=== PATIENT | male | born 1955 | race Caucasian/White ===

== ENCOUNTER 2020-07-19 18:21 | Observation (INO) | payer BC ==
[2020-07-19] MEDS ORDERED: IPRATROPIUM-ALBUTEROL 3 ML NEB INHALATION STA (19:02)
[2020-07-19] MEDS ORDERED: SODIUM CHLORIDE 0.9% 1,000 ML IV STA (19:02)
--- NOTE | 2020-07-19 19:21 | ED ---
SOB HPI - General Chief Complaint: Shortness of Breath Stated Complaint: Dr Hidalgo sent him for transfusion Time Seen by Provider: 07/19/20 18:40 Source: patient, RN notes reviewed Mode of arrival: wheelchair Limitations: physical limitation - History of Present Illness Initial Comments: This a 64-year-old male with a history of COPD also history of prior episodes of GI bleeding secondary to polyps who was sent in by his doctor's office today for evaluation for anemia and possible blood transfusion. He stated that the office today call at a time however no step members are currently aware of this area. He denies any lightheadedness dizziness fevers chills sweats he does have exertional dyspnea and shortness of breath from COPD. He does occasionally have some leading per rectum he states but nothing recent. No abdominal pain no other modifying factors at this time MD Complaint: shortness of breath - Related Data Home Medications Medication Instructions Recorded Confirmed Albuterol Sulfate [Ventolin HFA] 1 - 2 puff INHALATION RT-Q4H PRN 07/19/20 07/19/20 Aspirin EC [Ecotrin Low Dose] 81 mg PO DAILY 07/19/20 07/19/20 Atorvastatin Calcium [Lipitor] 40 mg PO HS 07/19/20 Budesonide [Pulmicort] 0.5 mg INHALATION RT-BID 07/19/20 Clopidogrel [Plavix] 75 mg PO DAILY 07/19/20 07/19/20 Furosemide [Lasix] 20 mg PO HS 07/19/20 07/19/20 Metoprolol Succinate [Toprol XL] 50 mg PO DAILY 07/19/20 07/19/20 Potassium Chloride [Klor-Con 10] 10 - 20 meq PO HS 07/19/20 Allergies Allergy/AdvReac Type Severity Reaction Status Date / Time No Known Allergies Allergy Verified 07/19/20 21:20 Review of Systems ROS Statement: Those systems with pertinent positive or pertinent negative responses have been documented in the HPI. ROS Other: All systems not noted in ROS Statement are negative. Past Medical History Past Medical History: Coronary Artery Disease (CAD), COPD History of Any Multi-Drug Resistant Organisms: None Reported Past Surgical History: Heart Catheterization With Stent Past Psychological History: No Psychological Hx Reported Smoking Status: Current some day smoker Past Alcohol Use History: Occasional Past Drug Use History: None Reported General Exam - General Exam Comments Initial Comments: This is a well-developed awake alert oriented times female Limitations: physical limitation General appearance: alert, in no apparent distress Head exam: Present: atraumatic, normocephalic, normal inspection Eye exam: Present: normal appearance, PERRL, EOMI. Absent: scleral icterus, conjunctival injection, periorbital swelling ENT exam: Present: normal exam, mucous membranes moist Neck exam: Present: normal inspection. Absent: tenderness, meningismus, lymphadenopathy Respiratory exam: Present: wheezes, decreased breath sounds. Absent: respiratory distress, rales, rhonchi, stridor Cardiovascular Exam: Present: regular rate, normal rhythm, normal heart sounds. Absent: systolic murmur, diastolic murmur, rubs, gallop, clicks GI/Abdominal exam: Present: soft, normal bowel sounds. Absent: distended, tenderness, guarding, rebound, rigid Extremities exam: Present: normal inspection, full ROM, normal capillary refill. Absent: tenderness, pedal edema, joint swelling, calf tenderness Back exam: Present: normal inspection Neurological exam: Present: alert, oriented X3, CN II-XII intact Psychiatric exam: Present: normal affect, normal mood Skin exam: Present: warm, dry, intact, normal color. Absent: rash Course Vital Signs 07/19/20 07/19/20 07/19/20 18:29 19:33 19:40 Temperature 98.2 F Pulse Rate 90 80 78 Respiratory 22 Rate Blood Pressure 109/72 O2 Sat by Pulse 89 L Oximetry 07/19/20 07/19/20 07/19/20 19:49 21:05 21:43 Temperature 97.9 F Pulse Rate 77 81 76 Respiratory 20 18 20 Rate Blood Pressure 127/78 153/54 137/77 O2 Sat by Pulse 98 96 97 Oximetry - Reevaluation(s) Reevaluation #1: 07/19/20 21:58 Reevaluation patient reveals continued diminished breath sounds with diffuse wh eezing. He still short of breath he feels no improvement. Medical Decision Making - Medical Decision Making I did a long discussion with the patient and his regarding findings patient does demonstrate evidence of COPD exacerbation. Additionally he does have anemia and does have a history of intermittent bleeding that is known to his physician apparently. He will be admitted serial CBCs and treatment for COPD exacerbation. GI will be consulted - Lab Data Result diagrams: 07/19/20 19:09 07/19/20 19:09 Lab Results 07/19/20 07/19/20 07/19/20 Range/Units 19:05 19:09 19:09 WBC 8.4 (3.8-10.6) k/uL RBC 4.37 (4.30-5.90) m/uL Hgb 8.4 L (13.0-17.5) gm/dL Hct 31.7 L (39.0-53.0) % MCV 72.5 L (80.0-100.0) fL MCH 19.2 L (25.0-35.0) pg MCHC 26.4 L (31.0-37.0) g/dL RDW 18.6 H (11.5-15.5) % Plt Count 322 (150-450) k/uL Neutrophils % (Manual) 75 % Band Neutrophils % 3 % Lymphocytes % (Manual) 14 % Monocytes % (Manual) 3 % Eosinophils % (Manual) 5 % Neutrophils # (Manual) 6.50 (1.3-7.7) k/uL Lymphocytes # (Manual) 1.18 (1.0-4.8) k/uL Monocytes # (Manual) 0.25 (0-1.0) k/uL Eosinophils # (Manual) 0.42 (0-0.7) k/uL Nucleated RBCs 0 (0-0) /100 WBC Manual Slide Review Performed Hypochromasia Marked Poikilocytosis Slight Poikilocytosis (manual Present Anisocytosis Slight Microcytosis Moderate Target Cells Present PT 10.7 (9.0-12.0) sec INR 1.0 (<1.2) APTT 25.3 (22.0-30.0) sec Sodium (137-145) mmol/L Potassium (3.5-5.1) mmol/L Chloride (98-107) mmol/L Carbon Dioxide (22-30) mmol/L Anion Gap mmol/L BUN (9-20) mg/dL Creatinine (0.66-1.25) mg/dL Est GFR (CKD-EPI)AfAm (>60 ml/min/1.73 sqM) Est GFR (CKD-EPI)NonAf (>60 ml/min/1.73 sqM) Glucose (74-99) mg/dL Calcium (8.4-10.2) mg/dL Magnesium (1.6-2.3) mg/dL Total Bilirubin (0.2-1.3) mg/dL AST (17-59) U/L ALT (4-49) U/L Alkaline Phosphatase (38-126) U/L Creatine Kinase (55-170) U/L Troponin I (0.000-0.034) ng/mL Total Protein (6.3-8.2) g/dL Albumin (3.5-5.0) g/dL Blood Type Blood Type Confirm O Positive Blood Type Recheck Bld Type Recheck Status Antibody Screen Spec Expiration Date 07/19/20 07/19/20 07/19/20 Range/Units 19:09 19:09 19:09 WBC (3.8-10.6) k/uL RBC (4.30-5.90) m/uL Hgb (13.0-17.5) gm/dL Hct (39.0-53.0) % MCV (80.0-100.0) fL MCH (25.0-35.0) pg MCHC (31.0-37.0) g/dL RDW (11.5-15.5) % Plt Count (150-450) k/uL Neutrophils % (Manual) % Band Neutrophils % % Lymphocytes % (Manual) % Monocytes % (Manual) % Eosinophils % (Manual) % Neutrophils # (Manual) (1.3-7.7) k/uL Lymphocytes # (Manual) (1.0-4.8) k/uL Monocytes # (Manual) (0-1.0) k/uL Eosinophils # (Manual) (0-0.7) k/uL Nucleated RBCs (0-0) /100 WBC Manual Slide Review Hypochromasia Poikilocytosis Poikilocytosis (manual Anisocytosis Microcytosis Target Cells PT (9.0-12.0) sec INR (<1.2) APTT (22.0-30.0) sec Sodium 128 L (137-145) mmol/L Potassium 5.4 H (3.5-5.1) mmol/L Chloride 89 L (98-107) mmol/L Carbon Dioxide 27 (22-30) mmol/L Anion Gap 12 mmol/L BUN 14 (9-20) mg/dL Creatinine 0.74 (0.66-1.25) mg/dL Est GFR (CKD-EPI)AfAm >90 (>60 ml/min/1.73 sqM) Est GFR (CKD-EPI)NonAf >90 (>60 ml/min/1.73 sqM) Glucose 94 (74-99) mg/dL Calcium 8.8 (8.4-10.2) mg/dL Magnesium 2.0 (1.6-2.3) mg/dL Total Bilirubin 0.6 (0.2-1.3) mg/dL AST 54 (17-59) U/L ALT 26 (4-49) U/L Alkaline Phosphatase 114 (38-126) U/L Creatine Kinase 49 L (55-170) U/L Troponin I <0.012 (0.000-0.034) ng/mL Total Protein 7.6 (6.3-8.2) g/dL Albumin 4.8 (3.5-5.0) g/dL Blood Type O Positive Blood Type Confirm Blood Type Recheck No Previous Record Bld Type Recheck Status CABO Indicated Antibody Screen NEGATIVE Spec Expiration Date 07/22/20202308 - EKG Data -: EKG Interpreted by Co EKG shows normal: sinus rhythm EKG Comments: Normal sinus rhythm 83 176 QRS 98 QT since QTC 390/458 nonspecific anterior configuration. - Radiology Data Radiology results: report reviewed (Imaging reviewed no acute findings), image reviewed Disposition Clinical Impression: Acute exacerbation of chronic obstructive pulmonary disease, Anemia Disposition: ADMITTED IP TO THIS [facility] Condition: Fair Referrals: Vick Hidalgo MD [Primary Care Provider] - 1-2 days
--- NOTE | 2020-07-19 19:33 | XR ---
EXAMINATION TYPE: XR chest 2V DATE OF EXAM: 07/19/2020 COMPARISON: NONE HISTORY: Short of breath TECHNIQUE: 2 views FINDINGS: Heart is normal. Lungs are clear of infiltrate. There is blunting right costophrenic angle. There are old multiple right-sided rib fractures. There are chest leads. IMPRESSION: Pleural scarring at the lateral right lung base. No heart failure.
[2020-07-19 19:36] LABS: Partial Thromboplastin Time 25.3 sec (22.0-30.0); Prothrombin Time 10.7 sec (9.0-12.0)
[2020-07-19 19:38] LABS: ALT 26 U/L (4-49); AST 54 U/L (17-59); African American GFR (CKD) >90 (>60 ml/min/1.73 sqM); Albumin 4.8 g/dL (3.5-5.0); Alkaline Phosphatase 114 U/L (38-126); Anion Gap 12 mmol/L; Blood Urea Nitrogen 14 mg/dL (9-20); Calcium 8.8 mg/dL (8.4-10.2); Carbon Dioxide 27 mmol/L (22-30); Chloride 89 mmol/L (98-107); Creatine Kinase 49 U/L (55-170); Glucose 94 mg/dL (74-99); Non-African American GFR(CKD) >90 (>60 ml/min/1.73 sqM); Potassium 5.4 mmol/L (3.5-5.1); Sodium 128 mmol/L (137-145); Total Bilirubin 0.6 mg/dL (0.2-1.3); Total Protein 7.6 g/dL (6.3-8.2)
[2020-07-19 20:03] LABS: Anisocytosis Slight; HCT 31.7 % (39.0-53.0); HGB 8.4 gm/dL (13.0-17.5); Hypochromasia Marked; MCH 19.2 pg (25.0-35.0); MCHC 26.4 g/dL (31.0-37.0); MCV 72.5 fL (80.0-100.0); Mean Platelet Volume 6.7; Microcytosis Moderate; Platelet Count 322 k/uL (150-450); Poikilocytosis Slight; RBC 4.37 m/uL (4.30-5.90); RDW 18.6 % (11.5-15.5); WBC 8.4 k/uL (3.8-10.6)
[2020-07-19 20:24] LABS: Band Neutrophils % 3 %; Eosinophils # (M) 0.42 k/uL (0-0.7); Lymphocytes # (M) 1.18 k/uL (1.0-4.8); Monocytes # (M) 0.25 k/uL (0-1.0); Neutrophils % (M) 75 %; Nucleated Red Blood Cells 0 /100 WBC (0-0); Poikilocytosis (M) Present; Target Cells Present; Total Cells Counted 100
[2020-07-19] MEDS: IPRATROPIUM-ALBUTEROL 3 ML NEB INHALATION SCH (23:37)
[2020-07-19] MEDS: SODIUM CHLORIDE 0.9% 1,000 ML IV SCH (23:42)
[2020-07-19] MEDS: methylPREDNISolone SOD SUCCI 125 MG/2 ML VIAL IV SCH (23:58)
[2020-07-20] MEDS: IPRATROPIUM-ALBUTEROL 3 ML NEB INHALATION SCH ×5 (03:22→20:22)
[2020-07-20] MEDS: methylPREDNISolone SOD SUCCI 125 MG/2 ML VIAL IV SCH (05:04)
[2020-07-20 06:57] LABS: Glucose,Whole Blood 151 mg/dL (75-99)
[2020-07-20] MEDS: INSULIN ASPART (NovoLOG) 100 UNIT/ML VIAL SQ SCH ×4 (07:32→22:38)
[2020-07-20] MEDS: SODIUM CHLORIDE 0.9% 1,000 ML IV SCH ×2 (07:32→16:52)
[2020-07-20] MEDS: METOPROLOL SUCCINATE (ER) 50 MG TAB.ER.24H PO SCH (07:32)
[2020-07-20] MEDS: CLOPIDOGREL 75 MG TAB PO SCH (07:37)
[2020-07-20 07:43] LABS: Anisocytosis Slight; Basophils # (A) 0.1 k/uL (0-0.2); Basophils % (A) 1 %; Eosinophils % (A) 0 %; HCT 30.3 % (39.0-53.0); Hypochromasia Marked; Lymphocytes # (A) 0.4 k/uL (1.0-4.8); Lymphocytes % (A) 5 %; MCH 19.4 pg (25.0-35.0); MCHC 26.4 g/dL (31.0-37.0); MCV 73.3 fL (80.0-100.0); Mean Platelet Volume 7.7; Microcytosis Moderate; Monocytes # (A) 0.3 k/uL (0-1.0); Monocytes % (A) 4 %; Neutrophils # (A) 6.6 k/uL (1.3-7.7); Neutrophils % (A) 88 %; Platelet Count 331 k/uL (150-450); Poikilocytosis Slight; RBC 4.14 m/uL (4.30-5.90); RDW 18.8 % (11.5-15.5); WBC 7.5 k/uL (3.8-10.6)
[2020-07-20 07:57] LABS: African American GFR (CKD) >90 (>60 ml/min/1.73 sqM); Anion Gap 9 mmol/L; Blood Urea Nitrogen 13 mg/dL (9-20); Calcium 8.5 mg/dL (8.4-10.2); Carbon Dioxide 28 mmol/L (22-30); Chloride 97 mmol/L (98-107); Glucose 127 mg/dL (74-99); Non-African American GFR(CKD) >90 (>60 ml/min/1.73 sqM); Potassium 4.7 mmol/L (3.5-5.1); Sodium 134 mmol/L (137-145)
[2020-07-20] MEDS: BUDESONIDE 0.5 MG/2 ML NEBU INHALATION SCH ×2 (08:25→20:22)
[2020-07-20 11:27] LABS: Glucose,Whole Blood 188 mg/dL (75-99)
--- NOTE | 2020-07-20 14:04 | P.HPIM ---
History of Present Illness Patient is a 64-year-old male was sent in from PCPs office because of anemia and possible blood transfusion although patient's hemoglobin here is around 8-8.4 patient denied any blood in the stools or dark stools although not a very good historian because of his hearing problems. Patient is also complaining of shortness of breath without any orthopnea paroxysmal nocturnal dyspnea and patient does have wheezing and exam patient was started on systemic steroids at his IV steroids which will be switched to oral and will be admitted. Patient was comparing of cough without any significant sputum production. Patient was also hyponatremic was receiving Lasix at home which was started recently as an outpatient for pedal edema. Patient's serum sodium was 128. Patient is a started on 100 mL of normal saline her his creatinine did improve to 134 today Review of Systems REVIEW OF SYSTEMS: CONSTITUTIONAL: No fever, no malaise, no fatigue. HEENT: No recent visual problems or hearing problems. Denied any sore throat. CARDIOVASCULAR: No chest pain, orthopnea, PND, no palpitations, no syncope. PULMONARY: As mentioned in HPI GASTROINTESTINAL: No diarrhea, no nausea, no vomiting, no abdominal pain. NEUROLOGICAL: No headaches, no weakness, no numbness. HEMATOLOGICAL: Denies any bleeding or petechiae. GENITOURINARY: Denies any burning micturition, frequency, or urgency. MUSCULOSKELETAL/RHEUMATOLOGICAL: Denies any joint pain, swelling, or any muscle pain. ENDOCRINE: Denies any polyuria or polydipsia. The rest of the 14-point review of systems is negative. Past Medical History Past Medical History: Coronary Artery Disease (CAD), COPD, GI Bleed, Pneumonia Additional Past Medical History / Comment(s): states hx of "stomach bleed" History of Any Multi-Drug Resistant Organisms: None Reported Past Surgical History: Heart Catheterization With Stent Additional Past Surgical History / Comment(s): states stent placed about 6 months ago Past Anesthesia/Blood Transfusion Reactions: No Reported Reaction Date of Last Stent Placement:: 2019 Past Psychological History: No Psychological Hx Reported Smoking Status: Former smoker Additional Past Alcohol Use History / Comment(s): states quit smoking 6 months ago or so; states drinks a couple beers a week. Past Drug Use History: Marijuana Additional Drug Use History / Comment(s): states smokes 1 joint a day to relax Medications and Allergies Home Medications Medication Instructions Recorded Confirmed Type Albuterol Sulfate [Ventolin HFA] 1 - 2 puff INHALATION RT-Q4H PRN 07/19/20 07/19/20 History Aspirin EC [Ecotrin Low Dose] 81 mg PO DAILY 07/19/20 07/19/20 History Atorvastatin Calcium [Lipitor] 40 mg PO HS 07/19/20 07/20/20 History Budesonide [Pulmicort] 0.5 mg INHALATION RT-BID 07/19/20 07/20/20 History Clopidogrel [Plavix] 75 mg PO DAILY 07/19/20 07/19/20 History Furosemide [Lasix] 20 mg PO HS 07/19/20 07/19/20 History Metoprolol Succinate [Toprol XL] 50 mg PO DAILY 07/19/20 07/19/20 History Potassium Chloride [Klor-Con 10] 10 meq PO BID 07/19/20 07/20/20 History Allergies Allergy/AdvReac Type Severity Reaction Status Date / Time No Known Allergies Allergy Verified 07/19/20 21:20 Physical Exam Vitals: Vital Signs Temp Pulse Pulse Pulse Resp BP BP 07/20/20 12:12 80 07/20/20 12:01 76 07/20/20 08:37 80 07/20/20 08:27 80 07/20/20 07:30 17 07/20/20 07:00 98.1 F 83 17 142/83 07/20/20 03:33 84 07/20/20 03:22 84 07/20/20 01:25 97.9 F 79 151/89 07/20/20 00:00 76 18 07/19/20 23:49 76 07/19/20 23:45 97.9 F 76 18 124/74 07/19/20 23:37 76 07/19/20 21:43 97.9 F 76 20 137/77 07/19/20 21:05 81 18 153/54 07/19/20 19:49 77 20 127/78 07/19/20 19:40 78 07/19/20 19:33 80 07/19/20 18:29 98.2 F 90 22 109/72 Pulse Ox 07/20/20 12:12 07/20/20 12:01 07/20/20 08:37 07/20/20 08:27 07/20/20 07:30 08/20/20 07:00 97 07/20/20 03:33 07/20/20 03:22 07/20/20 01:25 97 07/20/20 00:00 07/19/20 23:49 07/19/20 23:45 96 07/19/20 23:37 07/19/20 21:43 97 07/19/20 21:05 96 07/19/20 19:49 98 07/19/20 19:40 07/19/20 19:33 07/19/20 18:29 89 L Intake and Output 07/19/20 07/20/20 07/20/20 22:59 06:59 14:59 Other: Voiding Method Toilet Toilet # Voids 2 Weight 83.461 kg 83.461 kg PHYSICAL EXAMINATION: GENERAL: The patient is alert and oriented x3, not in any acute distress. Well developed, well nourished. HEENT: Pupils are round and equally reacting to light. EOMI. No scleral icterus. No conjunctival pallor. Normocephalic, atraumatic. No pharyngeal erythema. No thyromegaly. CARDIOVASCULAR: S1 and S2 present. No murmurs, rubs, or gallops. PULMONARY: Mild expiratory wheezing and decreased air entry bilateral lung almaraz ABDOMEN: Soft, nontender, nondistended, normoactive bowel sounds. No palpable organomegaly. MUSCULOSKELETAL: No joint swelling or deformity. EXTREMITIES: No cyanosis, clubbing, or pedal edema. NEUROLOGICAL: Gross neurological examination did not reveal any focal deficits. SKIN: No rashes. Results CBC & Chem 7: 07/20/20 07:16 07/20/20 07:16 Labs: Abnormal Lab Results - Last 24 Hours (Table) 07/19/20 07/19/20 07/20/20 Range/Units 19:09 19:09 06:55 RBC (4.30-5.90) m/uL Hgb 8.4 L (13.0-17.5) gm/dL Hct 31.7 L (39.0-53.0) % MCV 72.5 L (80.0-100.0) fL MCH 19.2 L (25.0-35.0) pg MCHC 26.4 L (31.0-37.0) g/dL RDW 18.6 H (11.5-15.5) % Lymphocytes # (1.0-4.8) k/uL Sodium 128 L (137-145) mmol/L Potassium 5.4 H (3.5-5.1) mmol/L Chloride 89 L (98-107) mmol/L Creatinine (0.66-1.25) mg/dL Glucose (74-99) mg/dL POC Glucose (mg/dL) 151 H (75-99) mg/dL Creatine Kinase 49 L (55-170) U/L 07/20/20 07/20/20 07/20/20 Range/Units 07:16 07:16 11:25 RBC 4.14 L (4.30-5.90) m/uL Hgb 8.0 L (13.0-17.5) gm/dL Hct 30.3 L (39.0-53.0) % MCV 73.3 L (80.0-100.0) fL MCH 19.4 L (25.0-35.0) pg MCHC 26.4 L (31.0-37.0) g/dL RDW 18.8 H (11.5-15.5) % Lymphocytes # 0.4 L (1.0-4.8) k/uL Sodium 134 L (137-145) mmol/L Potassium (3.5-5.1) mmol/L Chloride 97 L (98-107) mmol/L Creatinine 0.49 L (0.66-1.25) mg/dL Glucose 127 H (74-99) mg/dL POC Glucose (mg/dL) 188 H (75-99) mg/dL Creatine Kinase (55-170) U/L Thrombosis Risk Factor Assmnt - Choose All That Apply Any of the Below Risk Factors Present?: Yes Each Factor Represents 1 point: Abnormal pulmonary function (COPD) Other Risk Factors: Yes Each Risk Factor Represents 2 Points: Age 61-74 years Other congenital or acquired thrombophilia - If yes, enter type in comment: No Thrombosis Risk Factor Assessment Total Risk Factor Score: 3 Thrombosis Risk Factor Assessment Level: Moderate Risk Assessment and Plan Plan: -COPD with acute exacerbation patient will be switched to oral steroids continue with breathing treatments. -Anemia so far there is no evidence of acute GI bleed etiology of the anemia is not clear, probably chronic and deficiency anemia gastroneurology evaluate the patient antiplatelet therapy is being held although patient is still on Plavix which he'll continue as there is no significant evidence of acute GI bleed unless the gastroneurology recommended stool disc any of this medication patient is also on aspirin patient had a recent cardiac catheterization with stents about 6 months ago -Hyponatremia: Hypovolemic hyponatremia from excessive diuresis continue with IV fluids hold off on Lasix -Coronary artery disease with recent cardiac cath and stenting, continue with statin, beta gino.
[2020-07-20 14:28] LABS: Reticulocyte % 2.7 % (0.5-2.0)
[2020-07-20 16:31] LABS: Glucose,Whole Blood 157 mg/dL (75-99)
[2020-07-20 19:36] LABS: % Iron Saturation 1.17 (15.00-50.00); Ferritin 6.8 ng/mL (22.0-322.0); Folate, Serum 20.7 ng/mL
[2020-07-20] MEDS ORDERED: FUROSEMIDE 20 MG TAB PO SCH (21:00)
[2020-07-20 21:11] LABS: Glucose,Whole Blood 145 mg/dL (75-99)
[2020-07-20] MEDS: ATORVASTATIN 40 MG TAB PO SCH (22:40)
[2020-07-21] MEDS: IPRATROPIUM-ALBUTEROL 3 ML NEB INHALATION SCH ×7 (00:36→23:21)
--- NOTE | 2020-07-21 02:48 | CONS ---
CONSULTATION DATE OF DICTATION: 07/20/2020 REASON FOR CONSULTATION: Microcytic hypochromic anemia. HISTORY OF PRESENT ILLNESS: The patient is a 64-year-old pleasant white male with history of COPD, admitted to the hospital because of fatigue, weakness and anemia. Apparently, he was noted to have a hemoglobin that was 8 g/dL and was sent into the ER for possible blood transfusion and workup for anemia. The patient denies any abdominal pain. He reports no nausea, vomiting. He denies any syncope. He came to the emergency room and had labs done that showed anemia with a hemoglobin of 8.4 g/dL and MCV at 72 and elevated RDW. He is on aspirin and Plavix for underlying coronary artery disease. Last stent was placed in October of 2019. He recalls having a colonoscopy about a year and a half ago at [facility]. No prior history of upper endoscopy. No recent NSAID use. No prior history of peptic ulcer disease. PAST MEDICAL HISTORY: Coronary artery disease, status post angioplasty with stent placement in October of 2019, history of hypertension, hyperlipidemia, and COPD. MEDICATIONS: Medications at home include Ventolin, Ecotrin, Lipitor, Pulmicort, Plavix, Lasix, aspirin, metoprolol, potassium chloride. ALLERGIES: None. SOCIAL HISTORY: Chronic smoker. No alcohol use. FAMILY HISTORY: Unremarkable. REVIEW OF SYSTEMS: CARDIOPULMONARY: He denies any chest pain. He does have some shortness of breath, but has improved. NEUROLOGY: Unremarkable. PSYCHIATRIC: Unremarkable. ENT/VISION: Unremarkable. CONSTITUTIONAL: No recent weight loss. No fever, chills, night sweats. HEMATOLOGY: Severe microcytic anemia. ENDOCRINE: Unremarkable. MUSCULOSKELETAL: Unremarkable. PHYSICAL EXAMINATION: He appears comfortable. Vital signs are stable. Blood pressure is 113/86, pulse rate 82, temperature 97.8. HEENT EXAMINATION: Unremarkable. Conjunctivae pale. Sclerae anicteric. Oral cavity, no lesions. NECK: No JVD or lymph node enlargement. CHEST: Clear to auscultation. HEART: Regular rate and rhythm. ABDOMEN: Soft. Bowel sounds are positive. No organomegaly. EXTREMITIES: No pedal edema. SKIN: No rashes. NEUROLOGIC: Alert and oriented x3. No focal deficits. LABS: Labs done at the time of admission to the hospital: WBC 7.5, hemoglobin 8.4, MCV 72, platelets normal. Basic metabolic panel showed BUN and creatinine are within normal limits. Sodium 128. PTT, INR normal. AST, ALT, T bilirubin and alkaline phosphatase are normal. IMPRESSION: 1. Severe microcytic hypochromic anemia consistent with iron deficiency anemia most likely secondary to occult gastrointestinal blood loss. Patient clinically has no active bleeding. He denies any gastrointestinal symptoms. He had a colonoscopy a year ago at [facility] and according to the patient's it showed diverticulosis. No prior history of peptic ulcer disease or recent NSAID use. 2. History of coronary artery disease, status post angioplasty with stent placement in October of 2019. 3. History of hypercholesteremia. 4. Chronic obstructive pulmonary disease. RECOMMENDATION: 1. Clear liquid diet. 2. Protonix 40 mg daily. 3. We will proceed with an upper endoscopy to evaluate this further and if the upper endoscopy is negative will consider a small bowel capsule endoscopy. In the meantime, we will obtain records of colonoscopy from [facility]. Will repeat labs in the morning. 4. We will follow with you closely. Thank you for this consultation. MMODL / IJN: [id number] /
[2020-07-21] MEDS: CLOPIDOGREL 75 MG TAB PO SCH (07:19)
[2020-07-21] MEDS: INSULIN ASPART (NovoLOG) 100 UNIT/ML VIAL SQ SCH ×4 (07:21→20:50)
[2020-07-21 07:22] LABS: Glucose,Whole Blood 120 mg/dL (75-99)
[2020-07-21] MEDS: METOPROLOL SUCCINATE (ER) 50 MG TAB.ER.24H PO SCH (07:32)
[2020-07-21] MEDS: predniSONE 20 MG TAB PO SCH (07:32)
[2020-07-21] MEDS: SODIUM CHLORIDE 0.9% 1,000 ML IV SCH ×3 (07:37→20:54)
[2020-07-21] MEDS: BUDESONIDE 0.5 MG/2 ML NEBU INHALATION SCH ×2 (09:14→19:26)
[2020-07-21 10:30] LABS: Anisocytosis Slight; Basophils % (A) 0 %; Eosinophils % (A) 0 %; HCT 29.7 % (39.0-53.0); HGB 7.5 gm/dL (13.0-17.5); Hypochromasia Marked; Lymphocytes # (A) 0.7 k/uL (1.0-4.8); Lymphocytes % (A) 7 %; MCH 19.1 pg (25.0-35.0); MCHC 25.4 g/dL (31.0-37.0); MCV 75.1 fL (80.0-100.0); Mean Platelet Volume 7.3; Microcytosis Moderate; Monocytes # (A) 0.7 k/uL (0-1.0); Monocytes % (A) 7 %; Neutrophils # (A) 8.3 k/uL (1.3-7.7); Neutrophils % (A) 83 %; Platelet Count 377 k/uL (150-450); Poikilocytosis Slight; RBC 3.95 m/uL (4.30-5.90); RDW 18.9 % (11.5-15.5)
[2020-07-21 11:21] LABS: Mixed Population RBC Present; Target Cells Present
[2020-07-21 11:41] LABS: Glucose,Whole Blood 144 mg/dL (75-99)
[2020-07-21] MEDS ORDERED: fentaNYL (PF) 50 MCG/ML 2 ML AMP ONE (13:37)
[2020-07-21] MEDS ORDERED: LIDOCAINE 1% INJ 10MG/ML (20 ML MDV) ONE (13:37)
[2020-07-21] MEDS ORDERED: MIDAZOLAM 2 MG/2 ML VIAL ONE (13:37)
[2020-07-21] MEDS ORDERED: PROPOFOL 10 MG/ML 20 ML VIAL IV ONE (13:37)
[2020-07-21] MEDS ORDERED: IV FLUID CONTINUATION 900 ML IV ONE (13:44)
--- NOTE | 2020-07-21 13:48 | P.PCN ---
Date of Procedure: 07/21/20 Procedure(s) Performed: BRIEF HISTORY: Patient is a 66-year-old, pleasant, white male admitted the hospital with symptomatic anemia and hemoglobin of 8.4 g/dL. And esophagus consistent with iron deficiency anemia. He had a colonoscopy 2 years ago and according to him was unremarkable. He is hence scheduled for an upper endoscopy to evaluate further.. PROCEDURE PERFORMED: Esophagogastroduodenoscopy with biopsy. PREOPERATIVE DIAGNOSIS: Symptomatic anemia. IV sedation per anesthesia. PROCEDURE: After informed consent was obtained, the patient was brought into the endoscopy unit. IV sedation was administered by Anesthesia under continuous monitoring. Initially the Olympus GIF-140 video endoscope was inserted into the mouth. Esophagus intubated without any difficulty. It was gradually advanced into the stomach and duodenum and carefully examined. The bulb and the second part of the duodenum appeared normal. Biopsies were done from here to rule out celiac disease. The scope at this time was withdrawn to the stomach, adequately insufflated with air, and upon careful examination, mucosa of the antrum, had mild gastritis and biopsies were done from this area. The body, cardia and the fundus appeared normal. The scope was then withdrawn into the esophagus. The GE junction was located at 39 cm from the incisors. The esophagus appeared normal. There were no erosions or ulcerations seen and the patient tolerated the procedure well. IMPRESSION: 1. Mild antral gastritis. 2. No evidence of esophagitis or peptic ulcer. RECOMMENDATIONS: The findings of this examination were discussed with the patient as well as his family. At this time will await the biopsy results. Start on iron supplements. No plans on repeat colonoscopy this time. He was advised to follow up in office in 3-4 weeks following discharge from the hospital and will monitor CBC closely..
--- NOTE | 2020-07-21 14:03 | P.PN ---
Subjective Progress Note Date: 07/21/20 Principal diagnosis: Patient is a 64-year-old male was sent in from PCPs office because of anemia and possible blood transfusion although patient's hemoglobin here is around 8-8.4 patient denied any blood in the stools or dark stools although not a very good historian because of his hearing problems. Patient is also complaining of shortness of breath without any orthopnea paroxysmal nocturnal dyspnea and patient does have wheezing and exam patient was started on systemic steroids at his IV steroids which will be switched to oral and will be admitted. Patient was comparing of cough without any significant sputum production. Patient was also hyponatremic was receiving Lasix at home which was started recently as an outpatient for pedal edema. Patient's serum sodium was 128. Patient is a started on 100 mL of normal saline her his creatinine did improve to 134 today 07/21/2020 Patient is seen and evaluated in follow-up today with no acute overnight issues. Patient is currently maintained on oxygen at 2 L via nasal cannula and states his breathing has slightly improved. Patient continues to have dyspnea with exertion. Patient is maintained on breathing inhalational treatments along with oral steroids and will continue at this time. Expiratory wheezes noted on exam. Patient's hemoglobin is 7.5 today with no active signs of bleeding. GI following and plans to undergo EGD today and is currently pending. Will repeat a.m. labs and monitor closely. Patient is currently maintained on gentle IV hydration with improvement in sodium. Patient continues to have a cough that is intermittent and occasionally brings up some phlegm. Review of systems; Constitutional: No reports of fatigue, fevers, or chills Cardiovascular: No reports of chest pain or palpitations Respiratory: Reports some mild shortness of breath and occasional cough GI: No reports of nausea, vomiting, or diarrhea : No reports of dysuria or retention Neurovascular: No reports of weakness or numbness All medications have been reviewed. Objective - Vital Signs Vital signs: Vital Signs Temp 98.0 F 07/21/20 07:00 Pulse 89 07/21/20 09:29 Resp 19 07/21/20 09:00 BP 172/91 07/21/20 07:00 Pulse Ox 100 07/21/20 07:00 Intake & Output 07/20/20 07/21/20 07/21/20 18:59 06:59 18:59 Intake Total 540 600 Balance 540 600 Intake: Intake, IV Titration 600 Amount Sodium Chloride 0.9% 1, 600 000 ml @ 75 mls/hr IV . [id number] STA Rx#:[id number] Oral 540 Other: Voiding Method Toilet Toilet Toilet # Voids 3 1 2 - Exam GENERAL: The patient is alert and oriented x3, not in any acute distress. Well developed, well nourished. HEENT: Pupils are round and equally reacting to light. EOMI. No scleral icterus. No conjunctival pallor. Normocephalic, atraumatic. No pharyngeal erythema. No thyromegaly. CARDIOVASCULAR: S1 and S2 present. No murmurs, rubs, or gallops. PULMONARY: Decreased breath sounds bilaterally with Mild expiratory wheezing noted on exam. ABDOMEN: Soft, obese, nontender, nondistended, normoactive bowel sounds. No palpable organomegaly. MUSCULOSKELETAL: No joint swelling or deformity. EXTREMITIES: No cyanosis, clubbing, or pedal edema. NEUROLOGICAL: Gross neurological examination did not reveal any focal deficits. SKIN: No rashes. - Labs CBC & Chem 7: 07/21/20 09:44 07/20/20 07:16 Labs: Abnormal Lab Results - Last 24 Hours (Table) 07/20/20 07/20/20 07/20/20 Range/Units 07:16 07:16 16:29 RBC (4.30-5.90) m/uL Hgb (13.0-17.5) gm/dL Hct (39.0-53.0) % MCV (80.0-100.0) fL MCH (25.0-35.0) pg MCHC (31.0-37.0) g/dL RDW (11.5-15.5) % Neutrophils # (1.3-7.7) k/uL Lymphocytes # (1.0-4.8) k/uL Retic Count 2.7 H (0.5-2.0) % POC Glucose (mg/dL) 157 H (75-99) mg/dL Iron 6 L (65-175) ug/dL TIBC 513 H (228-460) ug/dL % Saturation 1.17 L (15.00-50.00) Ferritin 6.8 L (22.0-322.0) ng/mL Vitamin B12 1140.0 H (200.0-944.0) pg/mL 07/20/20 07/21/20 07/21/20 Range/Units 21:09 07:20 09:44 RBC 3.95 L (4.30-5.90) m/uL Hgb 7.5 L (13.0-17.5) gm/dL Hct 29.7 L (39.0-53.0) % MCV 75.1 L (80.0-100.0) fL MCH 19.1 L (25.0-35.0) pg MCHC 25.4 L (31.0-37.0) g/dL RDW 18.9 H (11.5-15.5) % Neutrophils # 8.3 H (1.3-7.7) k/uL Lymphocytes # 0.7 L (1.0-4.8) k/uL Retic Count (0.5-2.0) % POC Glucose (mg/dL) 145 H 120 H (75-99) mg/dL Iron (65-175) ug/dL TIBC (228-460) ug/dL % Saturation (15.00-50.00) Ferritin (22.0-322.0) ng/mL Vitamin B12 (200.0-944.0) pg/mL 07/21/20 Range/Units 11:39 RBC (4.30-5.90) m/uL Hgb (13.0-17.5) gm/dL Hct (39.0-53.0) % MCV (80.0-100.0) fL MCH (25.0-35.0) pg MCHC (31.0-37.0) g/dL RDW (11.5-15.5) % Neutrophils # (1.3-7.7) k/uL Lymphocytes # (1.0-4.8) k/uL Retic Count (0.5-2.0) % POC Glucose (mg/dL) 144 H (75-99) mg/dL Iron (65-175) ug/dL TIBC (228-460) ug/dL % Saturation (15.00-50.00) Ferritin (22.0-322.0) ng/mL Vitamin B12 (200.0-944.0) pg/mL Assessment and Plan Assessment: -COPD with acute exacerbation; maintained on breathing inhalational treatments along with oral steroids -Anemia so far there is no evidence of acute GI bleed etiology of the anemia is not clear, probably chronic and deficiency anemia. GI following and planning an upper EGD today. Aspirin and Plavix currently on hold and appreciate GI re commendations on when to resume antiplatelet therapy as patient underwent recent cardiac catheterization with stents approximately 6 months ago -Hyponatremia: Hypovolemic hyponatremia from excessive diuresis continue with IV fluids hold off on Lasix, will repeat a.m. labs. -Coronary artery disease with recent cardiac cath and stenting, continue with statin, beta gino. Plan: Continue current medications, management, and symptomatic treatment. Will undergo EGD and will discuss with GI of when to resume antiplatelet therapy as patient recently underwent cardiac catheterization with stent placement. Will repeat a.m. labs and monitor electrolytes and hemoglobin closely. Instructed the patient to increase activity as tolerated and will discuss with nursing staff about weaning FiO2. Further recommendations to follow. Continue with breathing inhalational treatments along with oral steroids and will await EGD report. Possible discharge in 24-48 hours.
[2020-07-21 16:21] LABS: Glucose,Whole Blood 184 mg/dL (75-99)
[2020-07-21] MEDS ORDERED: PEG 3350-NA SULF,BICARB,CL/KCL 4,000 ML BOTTLE PO ONE (17:00)
[2020-07-21 20:40] LABS: Glucose,Whole Blood 74 mg/dL (75-99)
[2020-07-21] MEDS: ATORVASTATIN 40 MG TAB PO SCH (20:53)
[2020-07-22] MEDS: IPRATROPIUM-ALBUTEROL 3 ML NEB INHALATION SCH ×3 (03:21→11:31)
[2020-07-22 07:18] VITALS: RESP 16
[2020-07-22 07:19] LABS: Glucose,Whole Blood 106 mg/dL (75-99)
[2020-07-22] MEDS: INSULIN ASPART (NovoLOG) 100 UNIT/ML VIAL SQ SCH ×2 (07:20→12:22)
[2020-07-22 07:42] LABS: Anisocytosis Slight; HCT 30.7 % (39.0-53.0); HGB 7.9 gm/dL (13.0-17.5); Hypochromasia Marked; MCH 18.5 pg (25.0-35.0); MCHC 25.7 g/dL (31.0-37.0); MCV 72.1 fL (80.0-100.0); Mean Platelet Volume 7.5; Microcytosis Marked; Platelet Count 418 k/uL (150-450); Poikilocytosis Slight; RBC 4.25 m/uL (4.30-5.90); RDW 19.1 % (11.5-15.5); WBC 9.6 k/uL (3.8-10.6)
[2020-07-22] MEDS ORDERED: PROPOFOL 10 MG/ML 20 ML VIAL IV ONE (07:48)
[2020-07-22 07:55] LABS: African American GFR (CKD) >90 (>60 ml/min/1.73 sqM); Anion Gap 8 mmol/L; Blood Urea Nitrogen 8 mg/dL (9-20); Carbon Dioxide 33 mmol/L (22-30); Chloride 95 mmol/L (98-107); Glucose 90 mg/dL (74-99); Non-African American GFR(CKD) >90 (>60 ml/min/1.73 sqM); Potassium 3.7 mmol/L (3.5-5.1); Sodium 136 mmol/L (137-145)
[2020-07-22] MEDS: BUDESONIDE 0.5 MG/2 ML NEBU INHALATION SCH (08:06)
[2020-07-22] MEDS ORDERED: IV FLUID CONTINUATION 800 ML IV ONE (08:11)
--- NOTE | 2020-07-22 08:15 | P.PCN ---
Date of Procedure: 07/22/20 Procedure(s) Performed: BRIEF HISTORY: Patient is a 64-year-old [facility] with severe microcytic anemia. He underwent an upper endoscopy as stated that showed mild gastritis and small hiatal hernia. The BX results. He had a colonoscopy done in July [address] Mesa [facility] and was noted to have 3 large polyps in the sigmoid and rectum which are partially removed. Biopsies revealed adenoma. He was recommended to have a repeat colonoscopy in one year. PROCEDURE PERFORMED: Colonoscopy with snare polypectomy and Endo Clip placement. PREOPERATIVE DIAGNOSIS: Symptomatic microcytic anemia and negative upper endoscopy yesterday. IV sedation per Anesthesia. PROCEDURE: After informed consent was obtained, the patient, was brought into the endoscopy unit. IV sedation was administered by Anesthesia under continuous monitoring. Digital rectal examination was normal. Initially the Olympus CF-160 flexible video colonoscope was then inserted in the rectum, gradually advanced into the cecum without any difficulty. Careful examination was performed as the scope was gradually being withdrawn. Ileocecal valve and the appendiceal orifice were visualized and appeared normal. Prep was excellent. Mucosa of the cecum, ascending colon, transverse colon, descending colon appeared normal. In the sigmoid colon there was a 1 cm polyp that was removed by snare polypectomy. In the rectosigmoid colon at 24 cm from the anal verge, there was a 3 cm broad- based polyp that was removed by piecemeal snare polypectomy and complete polypectomy was accomplished. Following the polypectomy and Endo Clip was placed to prevent post-polypectomy bleed. In the proximal rectum there was a 1 mm polyp that was removed by snare polypectomy. Rest of the rectum appeared normal. Scattered left sided diverticulosis seen. Retroflexion was performed in the rectum and no lesions were seen. The patient tolerated the procedure well. IMPRESSION: 3 cm broad-based rectosigmoid polyp 24 cm from the anal verge status post piecemeal snare polypectomy followed by Endo Clip placement 1 cm; polyp status post polypectomy 7 mm rectal polyp status post polypectomy Scattered sigmoid diverticulosis RECOMMENDATIONS: Findings of this examination were discussed with the patient as well as his family. He was advised to follow with the biopsy results. If the biopsy shows an adenoma he can have a repeat colonoscopy in 3 years.
[2020-07-22] MEDS: predniSONE 20 MG TAB PO SCH (08:37)
[2020-07-22] MEDS: CLOPIDOGREL 75 MG TAB PO SCH (08:37)
[2020-07-22] MEDS: METOPROLOL SUCCINATE (ER) 50 MG TAB.ER.24H PO SCH (08:37)
[2020-07-22] MEDS: SODIUM CHLORIDE 0.9% 1,000 ML IV SCH (08:40)
[2020-07-22 08:54] VITALS: BP 129/80; TEMP 97.9
[2020-07-22 09:01] LABS: Eosinophils # (M) 0.19 k/uL (0-0.7); Lymphocytes # (M) 0.96 k/uL (1.0-4.8); Monocytes # (M) 0.67 k/uL (0-1.0); Neutrophils # (M) 7.78 k/uL (1.3-7.7); Neutrophils % (M) 81 %; Nucleated Red Blood Cells 0 /100 WBC (0-0); Target Cells Present; Total Cells Counted 100
[2020-07-22 11:15] LABS: Glucose,Whole Blood 178 mg/dL (75-99)
[2020-07-22 11:35] VITALS: PULSE 80
--- NOTE | 2020-07-22 15:24 | P.DS ---
Providers Date of admission: 07/19/20 22:03 Attending physician: Tawanna Vizcarra Consults: 07/19/20 21:59 Consult Physician Routine Consulting Provider: Mary Jo Mcdaniel Consult Reason/Comments: Anemia, intermittent GI bleeding none currently Do you want consulting provider notified?: Yes, Notify in am Primary care physician: [facility] Course: Patient is a 64-year-old male was sent in from PCPs office because of anemia and possible blood transfusion although patient's hemoglobin here is around 8-8.4 patient denied any blood in the stools or dark stools although not a very good historian because of his hearing problems. Patient is also complaining of shortness of breath without any orthopnea paroxysmal nocturnal dyspnea and patient does have wheezing and exam patient was started on systemic steroids at his IV steroids which will be switched to oral and will be admitted. Patient was comparing of cough without any significant sputum production. Patient was also hyponatremic was receiving Lasix at home which was started recently as an outpatient for pedal edema. 07/22/2020 Patient's serum sodium was 128 on admission, sodium level has normalized 36. Patient received dose of IV steroids and was quickly transitioned to oral prednisone. His breathing is improved he is on room air saturating above 90%, he will be discharged on oral prednisone taper. Lasix which patient was taking at home for pedal edema will be discontinued due to hyponatremia. Patient had upper endoscopy which showed gastritis, patient had 2 polyps that were removed, his Plavix will be held for 1 week he will resume on aspirin PHYSICAL EXAMINATION: GENERAL: The patient is alert and oriented x3, not in any acute distress. Well developed, well nourished. HEENT: Pupils are round and equally reacting to light. EOMI. No scleral icterus. No conjunctival pallor. Normocephalic, atraumatic. No pharyngeal erythema. No thyromegaly. CARDIOVASCULAR: S1 and S2 present. No murmurs, rubs, or gallops. PULMONARY: Mild expiratory wheezing and decreased air entry bilateral lung almaraz ABDOMEN: Soft, nontender, nondistended, normoactive bowel sounds. No palpable organomegaly. MUSCULOSKELETAL: No joint swelling or deformity. EXTREMITIES: No cyanosis, clubbing, or pedal edema. NEUROLOGICAL: Gross neurological examination did not reveal any focal deficits. SKIN: No rashes. Assessment: -COPD with acute exacerbation; maintained on breathing inhalational treatments,and continue on oral prednisone taper -Anemia: Upper endoscopy showing gastritis, also had 2 polyps removed, hemoglobin is stable at 7.9. Patient will be discharged on PPI, he will resume home dose of aspirin. Plavix will be held 1 week per gastroenterology. has history of cardiac catheterization with stents approximately 6 months ago. -Hypovolemic hyponatremia: Secondary to excessive diuretic therapy which she was taking for pedal edema. Improved with IV hydration -Coronary artery disease: with history of recent stenting 6 months ago. Continue beta gino, statin. Will be resumed on antiplatelets as mentioned above. Plavix held for 1 week Plan: Discharge him with PPI, hold Plavix 1 week, resume aspirin. Continue on statin and beta gino. Lasix discontinued, sodium is normalized with IV hydration. Follow-up with gastroenterology in 2 weeks. Prednisone taper, inhaled bronchodilators. Plan of care discussed with patient who is agreeable. Patient Condition at Discharge: Fair Plan - Discharge Summary Discharge Rx Participant: No New Discharge Prescriptions: New Famotidine [Pepcid] 20 mg PO BID #30 tablet predniSONE 10 mg PO DAILY #30 tab Continue Metoprolol Succinate [Toprol XL] 50 mg PO DAILY Aspirin EC [Ecotrin Low Dose] 81 mg PO DAILY Budesonide [Pulmicort] 0.5 mg INHALATION RT-BID Atorvastatin Calcium [Lipitor] 40 mg PO HS Albuterol Sulfate [Ventolin HFA] 1 - 2 puff INHALATION RT-Q4H PRN PRN Reason: Shortness Of Breath Clopidogrel [Plavix] 75 mg PO DAILY #0 Discontinued Potassium Chloride [Klor-Con 10] 10 meq PO BID Furosemide [Lasix] 20 mg PO HS Discharge Medication List Albuterol Sulfate [Ventolin HFA] 1 - 2 puff INHALATION RT-Q4H PRN 07/19/20 [History] Aspirin EC [Ecotrin Low Dose] 81 mg PO DAILY 07/19/20 [History] Atorvastatin Calcium [Lipitor] 40 mg PO HS 07/19/20 [History] Budesonide [Pulmicort] 0.5 mg INHALATION RT-BID 07/19/20 [History] Metoprolol Succinate [Toprol XL] 50 mg PO DAILY 07/19/20 [History] Clopidogrel [Plavix] 75 mg PO DAILY #0 07/22/20 [Rx] Famotidine [Pepcid] 20 mg PO BID #30 tablet 07/22/20 [Rx] predniSONE 10 mg PO DAILY #30 tab 07/22/20 [Rx] Follow up Appointment(s)/Referral(s): Mary Jo Mcdaniel MD [STAFF PHYSICIAN] - 2 Weeks Vick Hidalgo MD [Primary Care Provider] - 3 Days Patient Instructions/Handouts: Anemia (DC), Colonoscopy (DC), Upper Endoscopy (DC) Discharge Disposition: HOME SELF-CARE
== END 2020-07-22 15:28 | disposition home or self-care (01) ==
LOC: EC 18:21 → 4SSUR 22:03 → INTOOBSV 22:03 → UNDODISIN 07-22 15:28
PROVIDERS: ADMIT Hospitalist; ATTEND Hospitalist
DX: J44.1 Chronic obstructive pulmonary disease with (acute) exacerbation (principal); D50.9 Iron deficiency anemia, unspecified; K62.1 Rectal polyp; D12.7 Benign neoplasm of rectosigmoid junction; D12.5 Benign neoplasm of sigmoid colon; E87.1 Hypo-osmolality and hyponatremia; R60.9 Edema, unspecified; K29.70 Gastritis, unspecified, without bleeding; K44.9 Diaphragmatic hernia without obstruction or gangrene; K57.30 Diverticulosis of large intestine without perforation or abscess without bleeding; H91.90 Unspecified hearing loss, unspecified ear; I25.10 Atherosclerotic heart disease of native coronary artery without angina pectoris; E86.1 Hypovolemia; E66.9 Obesity, unspecified; Z68.29 Body mass index [BMI] 29.0-29.9, adult; I10 Essential (primary) hypertension; E78.5 Hyperlipidemia, unspecified; E78.00 Pure hypercholesterolemia, unspecified; Z86.010 Personal history of colon polyps; Z95.5 Presence of coronary angioplasty implant and graft; Z87.01 Personal history of pneumonia (recurrent); Z87.19 Personal history of other diseases of the digestive system; Z87.891 Personal history of nicotine dependence; Z79.82 Long term (current) use of aspirin; Z79.899 Other long term (current) drug therapy; Z79.02 Long term (current) use of antithrombotics/antiplatelets; Z79.51 Long term (current) use of inhaled steroids
CPT/HCPCS: 96376; 96374; 96361; 99285; 36415; 94640 ×8; 93005; 86900; 86901; 88305 ×2; 80053; 80048 ×2; 82607; 82728; 82550; 82746; 83540; 83550; 83735; 84484; 85025 ×4; 85610; 85045; 85730; 86850; 71046; 45382; 45385; 43239; G0378 ×4; J2250; J2930 ×2; J2001; J3010; J2704 ×2; J7512 ×2; 96360